=== PATIENT | female | born 1980 | race Caucasian/White ===

== ENCOUNTER 2016-10-16 08:38 | Inpatient (IN) | payer SELFPAY ==
[~2016-10-16] VITALS: Ht 158.8 cm; Wt 115.4 kg
[2016-10-16] MEDS ORDERED: PRENAT PO (09:10)
[2016-10-16 09:16] VITALS: Ht 158.8 cm; Wt 115.4 kg
[2016-10-16] MEDS ORDERED: BUTORPHANOL 2 MG INJ IV PRN (09:30)
[2016-10-16] MEDS ORDERED: MISOPROSTOL 200 MCG TAB PR PRN ×2 (09:30→21:00)
[2016-10-16] MEDS ORDERED: LIDOCAINE 1% (MPF) 30 ML INJ INJ PRN (09:30)
[2016-10-16] MEDS ORDERED: OXYTOCIN 30 UNITS/LR 500 ML IV PRN ×2 (09:30→21:00)
[2016-10-16] MEDS ORDERED: OXYTOCIN 30 UNITS/LR 500 ML IV SCH ×2 (09:30)
[2016-10-16] MEDS ORDERED: METHYLERGONOVINE 0.2 MG INJ IM PRN ×2 (09:30→21:00)
[2016-10-16] MEDS ORDERED: IBUPROFEN 600 MG TAB PO PRN (09:30)
[2016-10-16] MEDS ORDERED: CARBOPROST 250 MCG INJ IM PRN ×2 (09:30→21:00)
[2016-10-16] MEDS ORDERED: LACTATED RINGER'S 1,000 ML IV PRN (09:30)
[2016-10-16] MEDS: LACTATED RINGER'S 1,000 ML IV SCH ×3 (10:18→14:39)
[2016-10-16 10:30] LABS: ADD SCAN DIFF NO
[2016-10-16 10:34] LABS: BASOPHILS % 0.2 % (0.0-2.0); EOSINOPHILS # 0.1 10^3/ul (0.0-0.5); EOSINOPHILS % 0.9 % (0.0-7.0); HEMATOCRIT 34.6 % (37.0-47.0); HEMOGLOBIN 11.6 g/dl (12.0-16.0); LYMPHOCYTES # 1.6 10^3/ul (0.8-2.9); LYMPHOCYTES % 16.6 % (15.0-51.0); MEAN CORPUSCULAR HEMOGLOBIN 31.3 pg (29.0-33.0); MEAN CORPUSCULAR HGB CONC 33.5 g/dl (32.0-37.0); MEAN CORPUSCULAR VOLUME 93.3 fl (82.0-101.0); MONOCYTE # 0.7 10^3/ul (0.3-0.9); MONOCYTES % 6.9 % (0.0-11.0); NEUTROPHIL # 7.2 10^3/ul (1.6-7.5); NEUTROPHILS % 74.9 % (39.0-77.0); PLATELET COUNT 259 10^3/UL (140-415); RED BLOOD COUNT 3.71 10^6/ul (4.20-5.40); RED CELL DISTRIBUTION WIDTH 13.2 % (11.5-14.5); WHITE BLOOD COUNT 9.6 10^3/ul (4.8-10.8)
[2016-10-16 10:45] LABS: INR 0.91; PARTIAL THROMBOPLASTIN TIME 30.3 Sec (25.0-35.0); PROTIME 12.2 Sec (12.2-14.2)
[2016-10-16] MEDS ORDERED: ONDANSETRON 4 MG INJ IV STA (12:52)
[2016-10-16] MEDS ORDERED: CITRIC ACID/NA CITRATE 30 ML CUP PO ONE (13:00)
[2016-10-16] MEDS ORDERED: CLINDAMYCIN 900 MG/D5W (PMX) 50 ML IV SCH (13:00)
[2016-10-16] MEDS ORDERED: METOCLOPRAMIDE 10 MG INJ IV ONE (15:30)
[2016-10-16] MEDS ORDERED: KETOROLAC 30 MG INJ ONE (16:10)
[2016-10-16] MEDS ORDERED: PHENYLephrine (100 MCG/ML) 5ML SYG ONE (16:10)
[2016-10-16] MEDS ORDERED: morphine SULFATE/PF (10 MG/10 ML) INJ ONE (16:10)
[2016-10-16] MEDS ORDERED: OXYTOCIN 10 UNIT INJ ONE (16:10)
[2016-10-16] MEDS ORDERED: DEXAMETHASONE 4 MG/ML 1 ML INJ ONE (16:10)
[2016-10-16] MEDS ORDERED: METOCLOPRAMIDE 10 MG INJ ONE (16:10)
--- NOTE | 2016-10-16 16:46 | HP ---
Date/Time of Note Date/Time of Note DATE: 10/16/16 TIME: 16:33 OB - History Hx of Present Free Text/Dictation 35 y.o primigravida who had limited penatal care b y another ob who was sent for the induction of labor no uterine contraction on EFM but numorous variable decelerations and makedly decrease bbv variability even pior to initiate induction. after hydration had few occasions of deceleration even down to 60's some lastd for 3min since expected delivery is far and has contraced pelvis according to her ob primary section is chosen to be mode of delivery patient was informed the situation ,interpreated by her and agreed to have delivery, consented with informations in regard to poss complications Last Menstrual Period: Jan 11, 2016 Estimated Due Date: Oct 18, 2016 : 1 Para: 0 Spontaneous : 0 Therapeutic : 0 Care: Limited Care ( ) Ultrasounds: Normal mid trimester US Obstetrical Complications: None Medical Complications: None Past Family/Social History * Past Medical, Surgical, Family and Obstetric Histories reviewed from chart. Blood Type: O- Rubella: unknown RPR/VDRL: Negative GBS Status: Negative HBsAG: Unknown OB Admission Exam Physical Exam HEENT: WNL Heart: Rhythm Normal Lungs: Clear, Equal Abdomen: WNL Extremities: Normal Reflexes: Normal Cervical Dilatation: other Effacement: Other Station: Other Membranes: Intact Amniotic Fluid: Unevaluable Heart Rate: 150's Decelerations: Variable Decelerations Varibility: Minimum Contractions on Admission: None Last 72 hours Lab Results CBC & BMP 10/16/16 09:40 OB Assessment/Plan Reason for admission: other Other Assessment: IUP 39w5d cat II fht Other plan: primary section AIDE COONEY MD Oct 16, 2016 16:44
[2016-10-16] MEDS ORDERED: DIPHENHYDRAMINE 50 MG INJ IV PRN (17:00)
[2016-10-16] MEDS ORDERED: HYDROmorphONE 1 MG/ML SYG IV PRN ×2 (17:00)
[2016-10-16] MEDS ORDERED: ZOLPIDEM 5 MG TAB PO PRN (17:00)
[2016-10-16] MEDS ORDERED: morphine 2 MG INJ IV PRN ×2 (17:00)
[2016-10-16] MEDS ORDERED: ONDANSETRON 4 MG INJ IV PRN (17:00)
[2016-10-16] MEDS ORDERED: NALOXONE (0.4 MG/ML) INJ IV PRN (17:00)
[2016-10-16] MEDS ORDERED: PROCHLORPERAZINE 10 MG INJ IV PRN (17:00)
--- NOTE | 2016-10-16 18:18 | OPR ---
DATE OF OPERATION: 10/16/2016 PREOPERATIVE DIAGNOSIS: , 39 weeks 5 days with category II and contracted pelvis ____ from the delivery. POSTOPERATIVE DIAGNOSIS: , 39 weeks 5 days with category II and contracted pelvis ____ fro m the delivery Delivered normal with a relatively tight nuchal cord once. SURGEON: Hima Mullins MD JUVENILE COUNSELOR: ____. ANESTHESIA: Spinal. ANESTHESIOLOGIST: iVmal Ribeiro MD ESTIMATED BLOOD LOSS: Approximately 600 mL. PROCEDURE: Under proper induction of spinal anesthesia, the patient was placed in frog position. F oley catheter was introduced under sterile condition, repositioned to supine. Abdominal wall was pr epped and draped in usual aseptic manner. A transverse incision was made approximately 2 fingers ab ove the pubic rami. Incision was carried down through the subcutaneous tissue to the anterior rectu s fascia which was incised transversely in length of the incision. Fascial flap was created and 2 r ectus muscles in the midline and peritoneal cavity was entered. Low portion of the uterus was exposed. Thereafter, the bladder blade was introduced. Incision was made. Not much fluid cam e out. A normal was born left occiput transverse position with a tight nuchal cord, which wa s released and the mouth and nose were cleaned, and cord was clamped and cut and [facility] care. Placenta removed after the cord blood was obtained. Placen ta was removed manually and uterus was exteriorized. The uterine cavity was explored and the membrane was removed. The incision was closed using 0 chromic catgut in continuous interlocking man ner on the first layer, second layer using 2-0 chromic catgut including uterine serosa. There was a bleeder on the right lateral aspect, which was separately controlled with 0 chromic catgut simple s uture. Irrigation done and rechecked the incisional site which was intact and a piece of Surgicel w as laid on it. Sponge count correct. Parietal peritoneum was closed with 0 chromic catgut in continuous manner. Muscle closed with 0 chr omic catgut in continuous manner. Fascia closed with #1 Vicryl in continuous manner in 2 segments. The subcutaneous tissue was irrigated. This layer was approximated with 2-0 plain in continuous ma nner after adequate hemostasis secured. Skin closed with Insorb and Dermabond was applied on ____. Pressure dressing applied. Estimated blood loss approximately 600 mL. The patient withstood the procedure well and was sent to the recovery room in stable condition. Dictated By: HIMA HAINES/MELISSA Conf#: [id number] DID#: [id number]
[2016-10-16] MEDS ORDERED: OXYTOCIN 30 UNITS/LR 500 ML IV ONE (20:34)
[2016-10-16] MEDS: SENNA/DOCUSATE NA (8.6MG/50MG) TAB PO SCH (21:00)
[2016-10-16] MEDS ORDERED: LANOLIN 7 GM TUBE TOP PRN (21:00)
[2016-10-16] MEDS ORDERED: OXYCODONE/ACETAMINOPHEN (5/325) TAB PO PRN (21:00)
[2016-10-16] MEDS ORDERED: ACETAMINOPHEN/CODEINE #3 TAB PO PRN ×2 (21:00)
[2016-10-16] MEDS: OXYTOCIN 30 UNITS/LR 500 ML IV SCH (21:00)
[2016-10-16 21:15] VITALS: BP 131/69; PULSE 84; RESP 20
[2016-10-16 22:30] VITALS: BP 123/81; PULSE 93; RESP 19
[2016-10-16 23:55] VITALS: BP 133/69; PULSE 83; RESP 19
[2016-10-17] MEDS: OXYTOCIN 30 UNITS/LR 500 ML IV SCH (00:20)
[2016-10-17] MEDS: LACTATED RINGER'S 1,000 ML IV SCH ×4 (03:57→20:44)
[2016-10-17 04:00] VITALS: BP 134/67; PULSE 86; RESP 20
[2016-10-17 07:30] VITALS: BP 111/57; PULSE 83; RESP 19
[2016-10-17 08:06] LABS: ADD SCAN DIFF NO
[2016-10-17 08:14] LABS: BASOPHILS % 0.3 % (0.0-2.0); EOSINOPHILS % 0.1 % (0.0-7.0); HEMATOCRIT 30.1 % (37.0-47.0); HEMOGLOBIN 10.3 g/dl (12.0-16.0); LYMPHOCYTES # 1.7 10^3/ul (0.8-2.9); LYMPHOCYTES % 12.1 % (15.0-51.0); MEAN CORPUSCULAR HEMOGLOBIN 31.7 pg (29.0-33.0); MEAN CORPUSCULAR HGB CONC 34.2 g/dl (32.0-37.0); MEAN CORPUSCULAR VOLUME 92.6 fl (82.0-101.0); MEAN PLATELET VOLUME 9.8 fl (7.4-10.4); MONOCYTE # 0.8 10^3/ul (0.3-0.9); MONOCYTES % 5.6 % (0.0-11.0); NEUTROPHIL # 11.2 10^3/ul (1.6-7.5); NEUTROPHILS % 81.5 % (39.0-77.0); PLATELET COUNT 239 10^3/UL (140-415); RED BLOOD COUNT 3.25 10^6/ul (4.20-5.40); RED CELL DISTRIBUTION WIDTH 12.9 % (11.5-14.5); WHITE BLOOD COUNT 13.8 10^3/ul (4.8-10.8)
--- NOTE | 2016-10-17 08:16 | OPPN ---
Date/Time of Note Date/Time of Note DATE: 10/17/16 TIME: 08:15 Post-Anesthesia Notes Post-Anesthesia Note Activity: WNL Respiratory function: WNL Cardiovascular function: WNL Mental status: Baseline Pain reasonably controlled: Yes Hydration appropriate: Yes Nausea/Vomiting absent: Yes MANISHA OLMSTEAD MD Oct 17, 2016 08:16
[2016-10-17] MEDS: KETOROLAC 30 MG INJ IV PRN ×2 (10:16→16:07)
[2016-10-17] MEDS: SENNA/DOCUSATE NA (8.6MG/50MG) TAB PO SCH ×2 (10:16→20:23)
[2016-10-17 12:01] VITALS: BP 115/55; PULSE 78; RESP 19
--- NOTE | 2016-10-17 15:52 | PN ---
Date/Time of Note Date/Time of Note DATE: 10/17/16 TIME: 15:49 OB Subjective Subjective Subjective passing flatus no c/o OB Objective Objective Objective vss afebrile abdomen soft wound dry lochia min ext neg OB Assessment/Plan Other Assessment: stable pod #1 Other plan: as ordered AIDE COONEY MD Oct 17, 2016 15:52
[2016-10-17 16:07] VITALS: BP 106/54; PULSE 80; RESP 19
[2016-10-17] MEDS: IBUPROFEN 600 MG TAB PO SCH (18:08)
[2016-10-17] MEDS: OXYCODONE/ACETAMINOPHEN (5/325) TAB PO PRN (20:23)
[2016-10-17 20:25] VITALS: BP 92/55; PULSE 85; RESP 18
[2016-10-18] MEDS: OXYCODONE/ACETAMINOPHEN (5/325) TAB PO PRN ×3 (03:46→09:10)
[2016-10-18 03:50] VITALS: BP 97/55; PULSE 70; RESP 18
[2016-10-18] MEDS: LACTATED RINGER'S 1,000 ML IV SCH ×2 (04:44→12:44)
[2016-10-18] MEDS: IBUPROFEN 600 MG TAB PO SCH ×5 (05:50→23:28)
[2016-10-18 07:50] VITALS: BP 98/55; PULSE 71; RESP 18
[2016-10-18] MEDS: SENNA/DOCUSATE NA (8.6MG/50MG) TAB PO SCH ×2 (09:07→20:39)
--- NOTE | 2016-10-18 12:10 | PN ---
Date/Time of Note Date/Time of Note DATE: 10/18/16 TIME: 11:59 OB Subjective Subjective Subjective passing flatus voiding ok OB Objective Objective Objective vss afebrile fundus firm lochia min calf no tenderness OB Assessment/Plan Other Assessment: po c/s #2 Other plan: d/s home in am AIDE COONEY MD Oct 18, 2016 12:09
[2016-10-18 12:12] LABS: RUBELLA ANTIBODY - IGG 5.04 index
[2016-10-18 16:00] VITALS: BP 126/61; PULSE 92; RESP 18
[2016-10-18 19:30] VITALS: BP 105/51; PULSE 80; RESP 18
[2016-10-19 04:05] VITALS: BP 103/53; PULSE 59; RESP 18
[2016-10-19] MEDS: IBUPROFEN 600 MG TAB PO SCH ×2 (05:34→11:53)
[2016-10-19 07:40] VITALS: BP 110/58; PULSE 67; RESP 18
[2016-10-19] MEDS: SENNA/DOCUSATE NA (8.6MG/50MG) TAB PO SCH (08:34)
[2016-10-19] MEDS ORDERED: DIPHTH/TET/ACEL PERTUSS (ADULT) 0.5 ML VIAL IM* ONE (09:00)
--- NOTE | 2016-10-19 10:29 | DS ---
Date/Time of Note Date/Time of Note DATE: 10/19/16 TIME: 10:27 Discharge Summary Admission/Discharge Info Admit Date/Time Oct 16, 2016 at 08:38 Discharge Date/Time 10/19/16 Final Diagnosis s/p primary section for cat II Patient Condition: Stable Procedures primary section Hx of Present Illness see hp Hospital Course unevenful Home Meds Reported Medications Multivit/Min/Fol Ac/Iron/Pren* ( S*) 1 Tab Tab, 1 TAB PO DAILY, TAB 10/16/16 Follow-up Plan 2weeks at AIDE Deshpande MD Oct 19, 2016 10:29
--- NOTE | 2016-10-19 10:31 | PD.PPDC ---
OFFENDER EMPLOYMENT SPECIALIST Discharge Instruction Diagnosis Final Diagnosis: s/p primary c/s Condition Patient Condition: Stable Diet Diet: Resume Regular Diet Activity/Restrictions Activity: November Shower Restrictions: No Exercising No Lifting No Driving Minimize Stair-climbing No Sexual Activity Nothing in the Vagina No Stow No Tampons, douche Wound/Drain Care Instructions Wound/Drain Care Instructions: Wash with soap and water Keep clean and dry Follow-up Follow-up with Physician: 2, Week/Weeks Return to clinic for OFFICE ANALYST Instructions: Fever greater than 101 Chills Worsening abdominal pain Excessive Vaginal Bleeding More than 2 pads per hour Unable to tolerate diet OB Instructions: Breast Tenderness Depression Blurried Vision Headache Surgical Instructions: Incisional Drainage Incisional Redness AIDE COONEY MD Oct 19, 2016 10:31
== END 2016-10-19 13:30 | disposition home or self-care (01) | DRG 766 ==
LOC: L-D 08:38 → PP1 21:12
PROVIDERS: ADMIT Obstetrics & Gynecology; ATTEND Obstetrics & Gynecology
PROC: 10D00Z1 Extraction of Products of Conception, Low, Open Approach (ICD-10-PCS; principal; 2016-10-16 18:15)
DX: O76 Abnormality in fetal heart rate and rhythm complicating labor and delivery (principal); O69.89X0 Labor and delivery complicated by other cord complications, not applicable or unspecified; Z3A.39 39 weeks gestation of pregnancy; Z37.0 Single live birth
CPT/HCPCS: 85025; 85610; 85730; 86592; 86703; 86762; 86850; 86870; 86885; 86900; 86901; 87340; 90715; 94760; 99464; J1100; J1200; J1885; J2274; J2370; J2405; J2590; J2765; J2790; J7120